=== PATIENT | male | born 1940 | race Caucasian/White ===

== ENCOUNTER 2018-02-18 08:37 | Day surgery (SDC) | payer OTHER, MEDICARE ==
[~2018-02-18] VITALS: Ht 175.3 cm; Wt 75.5 kg
--- NOTE | ~2018-02-18 | OP ---
PATIENT NAME: CHELSEA BLANCO III MEDICAL RECORD: [id number] :42 LOCATION:D.OPS ADMISSION DATE: SURGEON: HAI GUTIÉRREZ MD DATE OF OPERATION: 02/18/2018 PREOPERATIVE DIAGNOSES: 1. History of colon polyps, in need of surveillance colonoscopy. 2. Prostate cancer. 3. Rule out anal cancer. POSTOPERATIVE DIAGNOSES: 1. History of colon polyps, in need of surveillance colonoscopy. 2. Prostate cancer. 3. Rule out anal cancer. 4. Exophytic growths around the anus as well as one ulcerated area within the anal canal. 5. Large left prostate nodule, likely the patient's prostate cancer. 6. Mild left-sided diverticulosis. PROCEDURES: 1. Total colonoscopy to cecum. 2. Anoscopy. SURGEON: Hai Gutiérrez MD EXCAVATOR BACKHOE OPERATOR: None. BLOOD LOSS: Minimal. ANESTHESIA: IV sedation. COMPLICATIONS: None. The risks, possible complications, and alternatives to the procedure were explained to the patient. He elects to proceed. DESCRIPTION OF PROCEDURE: The patient was conveyed to the GI lab electively on 02/18/2018. IV sedation was induced by the anesthesia staff. The patient was placed in the Frank position. A digital rectal examination was performed. Well-lubricated U-shaped anoscopes were used to perform anoscopy. I cannot definitely tell whether any of these exophytic growths represent malignancies or not or even if they are condylomata. Some of them are elva and are firm. There was one ulcerated area within the anal canal. I think that all of these need to be biopsied and that is not something that we are prepared to do in the operating room today as these will be excisional biopsies that will need to be performed in the operating room. A colonoscope was inserted through the anus. It was easily advanced to the cecum. I slowly withdrew the endoscope. The pullback was greater than 13-minute pullback. A retroflexed view was obtained in the rectum. I then unretroflexed the scope and removed it under direct vision. There is no need for the patient to follow up with me in the office. I will plan for his anal evaluation under anesthesia with incisional and excisional biopsies to be performed in the operating room in the near future. OPERATIVE REPORT [id number] CHELSEA BLANCO II TRANSINT:[id number] Voice Confirmation ID: [id number] DOCUMENT ID: [id number] HAI GUTIÉRREZ MD at 1525 CC: [id number] DICTATION DATE: 02/18/18 1139 SAW CLEANER: 02/18/18 1204 [facility] 02/18/18 [place] [id number] [place] [id number]
[2018-02-18 09:05] LABS: BASOPHILS 0.5 % (0-2); EOSINOPHILS 8.7 % (0-7); HEMATOCRIT 39.3 % (42.0-54.0); HEMOGLOBIN 13.7 g/dL (13.5-17.5); IMMATURE GRANULOCYTES 0.2 % (0-5); LYMPHOCYTES 26.5 % (15-50); MCH 31.9 pg (26.0-34.0); MCHC 34.9 g/dL (31.0-37.0); MCV 91.4 fL (80.0-100.0); MEAN PLATELET VOLUME 9.5 fL (7.4-10.4); MONOCYTES 10.1 % (2-11); PLATELET COUNT 168 10x3/uL (130-400)
[2018-02-18 09:10] LABS: CALC OSMOLALITY 281 mosm/kg (275-300); CALCIUM 8.9 mg/dL (8.5-10.1); CARBON DIOXIDE 29.2 mmol/L (21.0-32.0); CHLORIDE - SERUM 104 mmol/L (98-107); CREATININE - SERUM 0.9 mg/dL (0.6-1.3); GLUCOSE 96 mg/dL (74-106); POTASSIUM - SERUM 4.1 mmol/L (3.5-5.1); SODIUM 141 mmol/L (136-145); UREA NITROGEN 14 mg/dL (7-18); eGFR NON AFRICAN AMERICAN 87 mL/min (90-120)
[2018-02-18] MEDS ORDERED: MINOCIN100 MG PO (10:29)
[2018-02-18] MEDS ORDERED: COZAAR100 MG PO (10:29)
[2018-02-18] MEDS ORDERED: COREG 3.1253.125 MG PO (10:36)
[2018-02-18] MEDS ORDERED: SYMBICORT 80-10.2 GM (10:37)
[2018-02-18] MEDS ORDERED: ALBUTEROL SULF8.5 GM INH (10:37)
[2018-02-18 10:46] VITALS: BP 131/81; Ht 175.3 cm; Wt 75.5 kg
== END 2018-02-18 12:40 | disposition home or self-care (01) ==
LOC: D.OPS 08:37
PROVIDERS: Anesthesiology
DX: K62.6 Ulcer of anus and rectum (principal); K57.30 Diverticulosis of large intestine without perforation or abscess without bleeding; C61 Malignant neoplasm of prostate; Z86.010 Personal history of colon polyps; Z01.812 Encounter for preprocedural laboratory examination

== ENCOUNTER 2018-04-02 07:14 | Day surgery (SDC) | payer OTHER, MEDICARE ==
[~2018-04-02] VITALS: Ht 175.3 cm; Wt 74.8 kg
[~2018-04-02 07:14] MED LIST: ALBUTEROL SULF8.5 GM INH; COREG 3.1253.125 MG PO; COZAAR100 MG PO; MINOCIN100 MG PO; SYMBICORT 80-10.2 GM
[2018-04-02 07:36] LABS: BASOPHILS 0.5 % (0-2); HEMATOCRIT 35.7 % (42.0-54.0); HEMOGLOBIN 12.4 g/dL (13.5-17.5); IMMATURE GRANULOCYTES 0.3 % (0-5); MCH 31.2 pg (26.0-34.0); MCHC 34.7 g/dL (31.0-37.0); MCV 89.7 fL (80.0-100.0); MEAN PLATELET VOLUME 9.2 fL (7.4-10.4); MONOCYTES 10.6 % (2-11); NEUTROPHILS 48.6 % (40-80); PLATELET COUNT 191 10x3/uL (130-400); RBC 3.98 10x6/uL (4.20-6.10); RDW 12.7 % (11.5-14.5); WBC 3.9 10x3/uL (4.8-10.8)
[2018-04-02 07:52] LABS: APTT 28.6 SECONDS (22.8-39.4); INR 1.01 (0.85-1.17); PROTIME 12.8 SECONDS (11.6-15.0)
[2018-04-02 07:53] LABS: CALC OSMOLALITY 281 mosm/kg (275-300); CALCIUM 9.1 mg/dL (8.5-10.1); CARBON DIOXIDE 28.4 mmol/L (21.0-32.0); CHLORIDE - SERUM 104 mmol/L (98-107); CREATININE - SERUM 0.8 mg/dL (0.6-1.3); GLUCOSE 96 mg/dL (74-106); POTASSIUM - SERUM 3.8 mmol/L (3.5-5.1); SODIUM 142 mmol/L (136-145); UREA NITROGEN 11 mg/dL (7-18); eGFR NON AFRICAN AMERICAN > 90 mL/min (90-120)
[2018-04-02] MEDS ORDERED: CASODEX50 MG PO (07:58)
[2018-04-02] MEDS ORDERED: FERROUS SULFAT325 MG PO (07:58)
[2018-04-02] MEDS ORDERED: BAYER CHEWABLE81 MG PO (07:59)
[2018-04-02] MEDS ORDERED: VITAMIN D2000 UNIT PO (07:59)
[2018-04-02] MEDS ORDERED: VIAGRA100 MG PO (07:59)
[2018-04-02 08:06] VITALS: BP 157/71; Ht 175.3 cm; Wt 74.8 kg
--- NOTE | 2018-04-02 12:10 | NUR ---
REC'D FROM RR. FAMILY AT BEDSIDE. ICE WATER, FL TRAY, CRANBERRY JUICE AND COFFEE BROUGHT TO PT.
--- NOTE | 2018-04-02 12:40 | NUR ---
TOLERATED DIET. NO URGE TO VOID.
--- NOTE | 2018-04-02 13:10 | NUR ---
FAMILY GONE DOWN FOR LUNCH. NO URGE TO VOID. NO CHANGES NOTED.
--- NOTE | 2018-04-02 13:40 | NUR ---
AMBULATED TO BATHROOM. TRYING TO VOID.
--- NOTE | 2018-04-02 14:10 | NUR ---
UNABLE TO VOID. BACK TO BED. DRINKING WATER AND IV FLUID RATE INCREASED. FAMILY AT BEDSIDE.
--- NOTE | 2018-04-02 15:00 | NUR ---
PT STATES VOIDED SMALL AMT, IV DC'D
--- NOTE | 2018-04-07 16:48 | OP ---
PATIENT NAME: CHELSEA BLANCO III MEDICAL RECORD: [id number] :42 LOCATION:D.OPS ADMISSION DATE: SURGEON: JENNYFER GUTIÉRREZ MD DATE OF OPERATION: 04/02/2018 PREOPERATIVE DIAGNOSIS: Exophytic anal lesions, rule out anal cancer. POSTOPERATIVE DIAGNOSES: Exophytic anal lesions, rule out anal cancer. PROCEDURE: Excisional anal biopsies times 3 with closure. SURGEON: Jennyfer Gutiérrez MD BAR HOST: None. BLOOD LOSS: Minimal. ANESTHESIA: General. COMPLICATIONS: None. The risks, possible complications and alternatives to the procedure were explained to the patient. He elects to proceed. The discussion specifically included, but was not limited to, bleeding requiring emergency reoperation, infection, rectal perforation and possible need for additional operative procedures in the future. OPERATIVE COURSE: The patient was conveyed to the operating room electively on 04/02/2018. General anesthesia was induced by the anesthesia staff. The patient was placed in the lithotomy position. The buttocks and anus were sterilely prepped and draped. U-shaped anal retractors were placed within the anus and I examined the anus and the lower rectum. I identified 3 areas that were in need of excisional biopsy. One was an exophytic lesion at about 7 o'clock and it contained an ulcer. The other was a small one at 5 o'clock and the another one at approximately 12 o'clock. At all 3 sites, the excisional biopsies were performed in a like manner. The exophytic lesions which were papillary and lengthy were grasped with hemostats. I incised the anoderm with the Harmonic scalpel. I then swept down the external sphincter. I then excised the lesions in their entireties through the use of double curvilinear incisions accomplished by utilizing the Harmonic scalpel. Submucosal and subcutaneous flaps were created sharply. I then closed each of these defects with a 3-0 Vicryl suture at the apex of the excision and then continuing on out in a running-locking manner until I met the anoderm and then in a running intracuticular manner and then I tied and buried the knot. I then reinforced the suture lines with multiple interrupted horizontal mattress 3-0 Vicryl sutures. Gelfoam was applied within the anus and lower rectum. Marcaine was used to infiltrate the perianal tissues. Gelfoam was packed within the anus and lower rectum. A topical anesthetic cream was applied to the external hemorrhoids. The patient was then extubated and conveyed to post-anesthesia care unit where he was in stable condition. Of the three lesions that are worrisome, the one at the 7 o'clock position is most worrisome as contains an ulcerated area that I cannot account for. OPERATIVE REPORT [id number] CHELSEA BLANCO II TRANSINT:[id number] Voice Confirmation ID: [id number] DOCUMENT ID: [id number] JENNYFER GUTIÉRREZ MD at 1648 CC: CECI FERNANDEZ and JACQUELYN COTO [id number] DICTATION DATE: 04/03/18 185 [employer]E T[employer] PREPARER: 04/04/[address] [facility] 04/02/18 [place] [id number] [place] [address]
== END 2018-04-02 14:55 | disposition home or self-care (01) ==
LOC: D.OPS 07:14 → D.PAN 10:30 → D.OPS 10:30
PROVIDERS: Anesthesiology
DX: K62.9 Disease of anus and rectum, unspecified (principal)